=== PATIENT | male | born 1970 | race Caucasian/White ===

== ENCOUNTER 2020-08-18 21:08 | Emergency (ER) | payer OTHER ==
[~2020-08-18] VITALS: Ht 180.3 cm; Wt 73.5 kg
--- NOTE | 2020-08-18 21:35 | NUR ---
Pt came in c/o skin rash and multiple abscess to Bilat hands PL:0/10. A/O x4, no SOB or labored breathing. Afebrile.
--- NOTE | 2020-08-18 21:36 | NUR ---
Dr. George at bedside, MSE in progress.
[2020-08-18] MEDS ORDERED: SULF1TAB48 PO (22:08)
[2020-08-18] MEDS ORDERED: MUPI22OI2 (22:08)
--- NOTE | 2020-08-18 22:14 | NUR ---
Patient discharged to home in stable condition. Written and verbal after care instructions given. Patient verbalizes understanding of instructions. Stressed follow up or return to ER for worsening s/s. A/O x4, no SOB or labored breathing. Denies pain/discomfort at this time. Steagy gait.
[2020-08-18] MEDS ORDERED: SULFAMETH/TRIMETH 800/160 MG TABLET PO ONE (22:15)
[2020-08-18 22:17] VITALS: BP 138/74
[2020-08-18] MEDS ORDERED: SULFAMETH/TRIMETH 800/160 MG TABLET ONE (22:20)
== END 2020-08-18 22:14 | disposition home or self-care (01) ==
LOC: ER 21:12
DX: L98.491 Non-pressure chronic ulcer of skin of other sites limited to breakdown of skin (principal); L08.89 Other specified local infections of the skin and subcutaneous tissue; B95.62 Methicillin resistant Staphylococcus aureus infection as the cause of diseases classified elsewhere
CPT/HCPCS: 87070; 87077; A4663